=== PATIENT | female | born 1985 | race Two or more races ===

== ENCOUNTER 2020-12-20 15:49 | Emergency (ER) | payer MEDICAID ==
[~2020-12-20] VITALS: Ht 157.5 cm; Wt 95.3 kg
[2020-12-20 16:21] LABS: Basophils # (auto) 0 10 ^3/uL (0-0.2); Basophils % (auto) 0.5 % (0.0-2.0); Eosinophils # (auto) 0.1 10 ^3/uL (0-0.8); Eosinophils % (auto) 1.5 % (0.0-7.0); Hematocrit 36.5 % (36.0-46.0); Hemoglobin 12.7 g/dL (12.2-16.2); Lymphocytes # (auto) 2.4 10 ^3/uL (0.4-5.4); Lymphocytes % (auto) 26.9 % (10.0-50.0); Mean Corpuscular Hemoglobin 30.2 pg (28.0-32.0); Mean Corpuscular Hgb Conc. 34.9 g/dL (32.0-36.0); Mean Corpuscular Volume 86.6 fL (80.0-100.0); Monocytes # (auto) 0.6 10 ^3/uL (0-1.3); Monocytes % (auto) 6.2 % (0.0-12.0); Neutrophils # (auto) 5.9 10 ^3/uL (1.6-8.6); Neutrophils % (auto) 64.9 % (37.0-80.0); Nucleated Red Blood Cells % 0.1 %; Red Blood Cells 4.21 10^6/uL (4.0-5.20); Red Cell Distribution Width 14.4 % (11.8-14.3); White Blood Cell 9.1 10^3/uL (4.4-10.8)
[2020-12-20 16:39] LABS: Albumin 3.5 g/dL (3.4-5.0); Calcium 8.5 mg/dL (8.5-10.1); Potassium 3.9 mmol/L (3.5-5.1)
[2020-12-20 16:43] LABS: BUN/Creatinine Ratio 13.8; Bilirubin, Total 0.2 mg/dL (0.2-1.0); Total Protein 7.6 g/dL (6.4-8.2)
[2020-12-20 17:30] LABS: Magnesium 2.3 mg/dL (1.6-2.6)
[2020-12-20 17:47] LABS: Urine Bacteria FEW /hpf (None Seen); Urine Blood TRACE /uL (Negative); Urine Mucus FEW (None Seen); Urine Specific Gravity 1.022 (1.001-1.035); Urine WBC 2 /hpf (0 - 5)
[2020-12-20 23:40] VITALS: BP 115/66
== END 2020-12-21 00:18 | disposition home or self-care (01) ==
LOC: ER 15:49
DX: K63.89 Other specified diseases of intestine (principal)
CPT/HCPCS: 36415; 74176; 80053; 81001; 81025; 82150; 83690; 83735; 84702; 85025